=== PATIENT | female | born 1945 | race Hispanic/Latino ===

== ENCOUNTER 2017-12-15 10:40 | Outpatient (CLI) | payer MEDICARE | END 2017-12-15 10:41 | disposition home or self-care (01) | LOC: BICMAMMO 10:40 | PROVIDERS: ATTEND Student in an Organized Health Care Education/Training Program | DX: Z12.31 Encounter for screening mammogram for malignant neoplasm of breast (principal); D12.6 Benign neoplasm of colon, unspecified; M85.80 Other specified disorders of bone density and structure, unspecified site; Z80.3 Family history of malignant neoplasm of breast; Z00.00 Encounter for general adult medical examination without abnormal findings | CPT/HCPCS: 77063; 77067; 77080 ==

== ENCOUNTER 2020-01-14 14:16 | Observation (INO) | payer MEDICARE ==
--- NOTE | 2020-01-14 15:14 | CT ---
CT BRAIN NONCONTRAST: DATE: 01/14/2020 HISTORY: 74-year-old female with approximately one week of dizziness, lightheadedness, headache, and gait inst ability. FINDINGS: There is no evidence of acute intra-axial or extra-axial hemorrhage. There is no midline shift or any other mass effect. There is no extra-axial fluid collection. There is no evidence of obstructive hydrocephalus. Calvarium is intact. There are low attenuation areas in the white matter. These are no nspecific, but in a patient of this age, they are probably chronic ischemic white matter changes due to microvascular atherosclerosis. There is a subtle, tiny moderately hypointense subcentimeter le carmelina at the anterior edge of the right thalamus, close to the genuine and posterior limb of the right internal capsule. IMPRESSION: 1) tiny faint focal hypodensity in the right thalamus anteriorly suggestive of a lacunar infarction, of indeterminate age. 2) no acute intracranial hemorrhage or mass effect. 3) chronic ischemic white matter changes.
[2020-01-14 15:28] LABS: #Eosinphils 0.1 thou/uL (0.0-0.7); #Lymphocytes 2.1 thou/uL (1.20-3.40); #Monocytes 0.7 thou/uL (0.11-0.59); #Neutrophils 2.8 thou/uL (1.40-6.50); %Basophils 0.7 % (0.0-1.0); %Eosinophils 1.1 % (0.0-10.0); %Lymphocytes 36.4 % (21.0-51.0); %Monocytes 12.4 % (0.0-10.0); %Neutrophils 49.5 % (42.0-75.0); Hemoglobin 14.6 g/dL (12.0-16.0); Mean Corpuscular HGB CONC 32.7 g/dL (32.0-36.0); Mean Corpuscular Hemoglobin 28.4 pg (27.0-31.0); Mean Corpuscular Volume 86.7 fL (78.0-98.0); Platelet Count 320 thou/uL (130-400); RBC Distribution Width 12.9 % (11.5-14.5); Red Blood Cell (RBC) Count 5.15 mill/uL (4.20-5.40); White Blood Cell (WBC) Count 5.7 thou/uL (4.8-10.8)
--- NOTE | 2020-01-14 15:28 | RAD ---
PORTABLE CHEST: Date: 01/14/2020 PROVIDED CLINICAL HISTORY: Vision loss, loss of balance. FINDINGS: No comparisons. Evaluation is limited by patient body habitus. The cardiac silhouette appears enlarged, which may be at least partially on the basis of portable barrie hnique. No focal consolidation, pleural fluid, or pneumothorax apparent. IMPRESSION: No definite evidence for an acute cardiopulmonary process. POS: UNIQUE
[2020-01-14 15:52] LABS: ALT (SGPT) 23 U/L (8-55); AST (SGOT) 18 U/L (5-34); Alkaline Phosphatase 105 U/L (40-110); Anion Gap 13 mmol/L (10-20); BUN (Urea Nitrogen) 16 mg/dL (9.8-20.1); Bilirubin, Total 0.7 mg/dL (0.2-1.2); Calc. Creatinine Clearance 0 mL/min (70-130); Calcium 9.6 mg/dL (7.8-10.44); Carbon Dioxide 28 mmol/L (23-31); Chloride 102 mmol/L (98-107); Estimated GFR-MDRD 72; Globulin 3.8 g/dL (2.4-3.5); Glucose 107 mg/dL (83-110); Protein, Total 7.8 g/dL (6.0-8.3); Sodium 140 mmol/L (136-145)
[2020-01-14 15:57] LABS: Potassium 2.9 mmol/L (3.5-5.1)
[2020-01-14] MEDS ORDERED: Potassium Chloride 20 MEQ TAB ONE (16:02)
[2020-01-14 16:34] LABS: Bilirubin Negative (Negative); Blood, Urine Negative (Negative); Clarity Clear (Clear); Glucose, Urine (Dipstick) Normal (Negative); Leukocyte Negative Leu/uL (Negative); Nitrite Negative (Negative); Protein, Urine (Dipstick) Negative (Neg-Trace); Urobilinogen Normal mg/dL (Less than 2)
--- NOTE | 2020-01-14 16:45 | PDOC.FPRHP ---
- History of Present Illness Chief Complaint: dizziness, word-finding difficulty History of Present Illness: 74yo F h/o HTN presents with 1wk sxs of dizziness/lightheadedness, R-sided RANDALL, blurred vision without field deficits, and word-finding difficulty. Sxs have worsened since onset. No LOC. No other focal deficit. Having to use cane to walk due to unsteadiness. No fever/chills, n/v. Diarrhea earlier in the week,, twice per day, since resolved. CP described as substernal burning, worse lying flat, has since resolved. Has history of GERD, has not tried anything at home. Checks BP at home, runs 160s/170s/90s at home. ED Course: Beside eye US WNL per report. CT obtained. - Allergies/Adverse Reactions Allergies Allergy/AdvReac Type Severity Reaction Status Date / Time acetaminophen Allergy Unverified 01/14/20 19:10 aspirin Allergy Verified 01/14/20 17:34 codeine Allergy Verified 01/14/20 19:09 - Home Medications Medication Instructions Recorded Confirmed Type Hydrochlorothiazide 25 mg PO QAM 01/14/20 01/14/20 History - History PMHx: HTN, GERD PSHx: Hyst, Appy, Knee arthroscopy FHx: Brother with TIAs, father with CVA Social: Lives with daughter. No tob, EtOH, or illicits. - Review of Systems General: denies: fever/chills, weight/appetite/sleep changes, fatigue Eyes: reports: vision changes ENT: denies: nasal congestion, rhinorrhea Respiratory: denies: cough, congestion, shortness of breath Cardiovascular: reports: chest pain (per HPI), edema (chronic) Gastrointestinal: reports: diarrhea. denies: nausea, vomiting, abdominal pain Genitourinary: denies: incontinence, dysuria Skin: denies: rashes Neurological: reports: other (per HPI) - Vital signs BP: 188/102 HR: 92 RR: 19 Tmax: 98.2 Pox: 93% on RA Wt: 81kg - Physical Exam Constitutional: NAD, awake, alert and oriented, well developed HEENT: PERRLA, EOMI, grossly normal hearing, MMM, oropharynx clear Neck: supple Heart: RRR, normal S1/S2, other (2/6 XANDER) Lungs: CTAB, no respiratory distress, good air movement, no rales/rhonchi, no wheezing Abdomen: soft, non-tender, bowel sounds present Musculoskeletal: normal structure, normal tone Neurological: no focal deficit, CN II-XII intact, normal sensation, other ( normal sensation, normal swantc-mo-ilgt. normal speech.) Skin: no rash/lesions Psychiatric: normal mood and affect, good judgment and insight, intact recent and remote memory FMR H&P: Results - Labs Result Diagrams: 01/14/20 15:20 01/14/20 15:20 Lab results: WBC 5.7 thou/uL (4.8-10.8) 01/14/20 15:20 Hgb 14.6 g/dL (12.0-16.0) 01/14/20 15:20 Hct 44.6 % (36.0-47.0) 01/14/20 15:20 MCV 86.7 fL (78.0-98.0) 01/14/20 15:20 Plt Count 320 thou/uL (130-400) 01/14/20 15:20 Neutrophils % 49.5 % (42.0-75.0) 01/14/20 15:20 Sodium 140 mmol/L (136-145) 01/14/20 15:20 Potassium 2.9 mmol/L (3.5-5.1) L* 01/14/20 15:20 Chloride 102 mmol/L (98-107) 01/14/20 15:20 Carbon Dioxide 28 mmol/L (23-31) 01/14/20 15:20 BUN 16 mg/dL (9.8-20.1) 01/14/20 15:20 Creatinine 0.78 mg/dL (0.6-1.1) 01/14/20 15:20 Glucose 107 mg/dL (83-110) 01/14/20 15:20 Calcium 9.6 mg/dL (7.8-10.44) 01/14/20 15:20 Total Bilirubin 0.7 mg/dL (0.2-1.2) 01/14/20 15:20 AST 18 U/L (5-34) 01/14/20 15:20 ALT 23 U/L (8-55) 01/14/20 15:20 Alkaline Phosphatase 105 U/L (40-110) 01/14/20 15:20 Serum Total Protein 7.8 g/dL (6.0-8.3) 01/14/20 15:20 Albumin 4.0 g/dL (3.4-4.8) 01/14/20 15:20 Urine Ketones Negative mg/dL (Negative) 01/14/20 16:20 Urine Blood Negative (Negative) 01/14/20 16:20 Urine Nitrite Negative (Negative) 01/14/20 16:20 Ur Leukocyte Esterase Negative Karl/uL (Negative) 01/14/20 16:20 - EKG Interpretation EKG: Normal axis, normal intervals. No ST or T wave changes. Good R wave progression. - Radiology Interpretation CT scan - head Status: report reviewed by me (tiny faint focal R anterior thalamus hypodensity lacunar infarct, chronic ischemic changes.) FMR H&P: A/P - Problem List (1) CVA (cerebral vascular accident) Current Visit: Yes Status: Acute Code(s): I63.9 - CEREBRAL INFARCTION, UNSPECIFIED (2) HTN (hypertension) Current Visit: Yes Status: Chronic Code(s): I10 - ESSENTIAL (PRIMARY) HYPERTENSION (3) Hypokalemia Current Visit: Yes Status: Acute Code(s): E87.6 - HYPOKALEMIA - Plan 74yo F with h/o HTN presents for CVA #R anterior thalamus CVA - sxs of dizziness/lighteadhedness, blurred vision, difficulty with word interpretation x1wk - CT head with faint focal R thalamus anterior hypodensity suggestive of lacunar infarct, age indeterminate - Risk stratify with lipid panel, TSH, A1C - PT/OT - neuro consult, apprec recs - NIH stroke scales - Allergy to ASA - unsure rxn - Plavix and Atorva added - Outside window for permissive HTN and/or tPA as sxs onset approx 1 week ago #GERD - CP described as burning epigastric worse with lying down and at night - h/o of GERD - EKG WNL and trop negative - Will add pepcid #Hypokalemia - K 2.9 - Will check Mg and phos - replace and monitor #HTN - Cont home HCTZ - BP 188/102 at presentation - home logs 160s/90s - will titrate meds appropriately Code: DNR PCP: [facility] - [place] Diet: IVF: SL VTE: Lovenox Disposition/LOS: Admit to stroke for new CVA. Neuro consulted. Risk stratify. Anticipate LOS > 48hrs. FMR H&P: Upper Level - Plan Date/Time: 01/14/20 1644 74 yo F with PMH HTN presents for lightheadedness, weakness, vision changes and is admitted for stroke rule out. She reports 1 week history of symptoms that have gradually been worsening. Endorses lightheadedness without syncope, mild R sided headache, difficulty with speech. Reports mild chest pain that has not worsened and some blurry vision. Denies SOB, difficulty breathing, fever. Notes allergy to ASA and was not given in ED. Says she took ASA years ago, tried it several times. She cant remember exact reaction but thinks it could have been hives. She has not taken since. PMH: HTN SxH: hysterectomy, appy, knee arthroscopy FH: HTN, depression-mother, mini-strokes in brother and father SocH: No tobacco, alcohol, drug use. Lives with daughter All: ASA-hives?, codeine, PCN, Tylenol-hives VS: 186/104, 169/87, 92, 20, 98.0, 96% on RA, 81 kg Gen: NAD, alert Heart: RRR, no murmur Lungs: CTAB, normal effort Ext: no edema Neuro: CN2-12 intact, BUE and BLE strength 5/5, sensory intact, finger to nose normal, normal speech and affect CT brain: tiny jelena focal hypodensity in R thalamus anteriorly suggestive of lacunar infarction of indeterminate age, no acute intracranial hemorrhage, chronic ischemic white matter changes CVA, lacunar - MRI ordered - Consult neurology - Lipids, A1c, TSH ordered for risk stratification. - Trop negative. EKG NSR, no NS changes - Start high intensity statin. - Patient reports aspirin allergy. Start Plavix for secondary prevention. - PT/OT consulted - Monitor NIH on stroke HTN - Initial BP in ED 188/102, now 160s systolic - Home BP log reviewed with daily readings BP average 160-170s/80-90s. Taking HCTZ daily. Took today. - Out of range for permissive HTN - Continue home HCTZ, will need titration for better BP control. Hypokalemia - Replaced in ED with 40 meq, recheck in am Diet: HH PPx: Lovenox PCP: Elisabeth Dispo: admit to stroke unit inpatient, expected stay <48hrs Patient seen and examined by Dr. Dumont. I, Willa Barragan DO, have evaluated this patient and agree with findings/plan as outlined by undergraduate internship resident. Pertinent changes/additions are listed here. Addendum - Attending - Attending Attestation Date/Time: 01/14/202054 I personally evaluated the patient and discussed the management with the team. I agree with the History, Examination, Assessment and Plan documented above with any addition or exceptions noted below. 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 Gets hives with nsaids, she says. Begin plavix, complete neuroimaging.
[2020-01-14] MEDS ORDERED: hydrALAZINE 20 MG/ML VIAL SLOW IVP PRN (17:09)
[2020-01-14] MEDS ORDERED: Calcium Carbonate 500 MG ChewTAB PO PRN (17:09)
[2020-01-14] MEDS ORDERED: hydrALAZINE 20 MG/ML VIAL ONE (17:32)
[2020-01-14 17:35] LABS: Magnesium 2.1 mg/dL (1.6-2.6); Phosphorus 2.5 mg/dL (2.3-4.7)
[2020-01-14 17:59] LABS: Hemoglobin A1c 6.2 % (4.0-6.0)
[2020-01-14 18:25] LABS: Troponin I Less than 0.010 ng/mL (< 0.028)
[2020-01-14] MEDS ORDERED: Atorvastatin Calcium 40 MG TAB PO SCH (21:00)
[2020-01-14 21:55] LABS: Troponin I 0.018 ng/mL (< 0.028)
--- NOTE | 2020-01-14 22:11 | ULT ---
Carotid duplex sonogram HISTORY: Vascular disease. TIA. FINDINGS: Right: Color and spectral Doppler evaluation, peak systolic velocity of 50 cm/s, and IC to CC ratio 0 .7 suggest no hemodynamically significant stenosis within the extracranial right ICA. Antegrade flow within the vertebral artery. Left: Color and spectral Doppler evaluation, peak systolic velocity of 45 cm/s, and IC to CC ratio of 0.5 suggest no hemodynamically significant stenosis within the extracranial left ICA. Antegrade flow within the vertebral artery. IMPRESSION : No significant plaque evident. No sonographic evidence of significant extracranial ICA stenosis.
[2020-01-14] MEDS: Famotidine 20 MG TAB PO SCH (22:52)
[2020-01-14 22:56] VITALS: BMI 37.3
--- NOTE | 2020-01-15 06:53 | PDOC.FM ---
- Subjective Subjective: Mrs. Funk reports feeling well. No change in symptoms. Reports difficulty with word finding though she does speak fluently. Reports continued unsteady gait but able to ambulate with cane. - Objective Vital Signs & Weight: Vital Signs (12 hours) Temp Pulse Resp BP Pulse Ox 01/15/20 04:19 98.3 F 76 16 95 01/15/20 00:00 98.2 F 77 16 177/85 H 97 Weight Weight 86.727 kg Result Diagrams: 01/14/20 15:20 01/15/20 07:08 Phys Exam - Physical Examination Constitutional: NAD Respiratory: clear to auscultation bilateral Cardiovascular: RRR (2/6 systolic ERIK border murmur) Gastrointestinal: soft, non-tender Musculoskeletal: no edema Psychiatric: normal affect Skin: normal turgor Dx/Plan - Plan Plan: 74 yo F with PMH HTN admitted for CVA. CVA, lacunar R anterior thalamus - MRI pending - Consult neurology - Continue statin - Patient reports aspirin allergy. Plavix started. - Carotid dopplar negative. - PT/OT consulted - Monitor NIH on stroke HTN - Home BP log reviewed with daily readings BP average 160-170s/80-90s. Taking HCTZ 25 daily. - Out of range for permissive HTN - Continue home HCTZ, will start lisinopril 5mg daily. Prediabetes - discussed with patient, outpatient follow up for lifestyle changes Hypokalemia, improved - Replaced in ED with 40 meq Diet: HH PPx: Lovenox PCP: Elisabeth Dispo: Pending workup Addendum - Attending - Attending Attestation Date/Time: 01/15/20 1120 I personally evaluated the patient and discussed the management with Dr. Barragan. I agree with the History, Examination, Assessment and Plan documented above with any addition or exceptions noted below. Patient here for CVA r/o. Has old lacunar infarct. Needs BP and cholesterol control. Should be stable for dc later today after neurology eval.
[2020-01-15 07:46] LABS: Anion Gap 13 mmol/L (10-20); BUN (Urea Nitrogen) 19 mg/dL (9.8-20.1); Calc. Creatinine Clearance 88 mL/min (70-130); Calcium 9.3 mg/dL (7.8-10.44); Carbon Dioxide 25 mmol/L (23-31); Cardiac Risk 3.7 (Less than 4.5); Chloride 104 mmol/L (98-107); Cholesterol 174 mg/dl (< 200 Desired); Estimated GFR-MDRD 74; Glucose 121 mg/dL (83-110); HDL Cholesterol 47 mg/dL (>60 Neg Risk); LDL Cholesterol, Calculated 109 mg/dL; Potassium 3.8 mmol/L (3.5-5.1); Sodium 138 mmol/L (136-145); Triglycerides 92 mg/dL (Less than 150)
[2020-01-15] MEDS ORDERED: Lorazepam 0.5 MG TAB PO SCH (08:00)
[2020-01-15] MEDS ORDERED: Lorazepam 2 MG/ML VIAL SLOW IVP SCH (08:00)
[2020-01-15] MEDS: Famotidine 20 MG TAB PO SCH (08:18)
[2020-01-15] MEDS ORDERED: Enoxaparin Sodium 40 MG/0.4 ML SYRINGE SC SCH (09:00)
[2020-01-15] MEDS ORDERED: Lisinopril 5 MG TAB PO SCH (09:00)
[2020-01-15] MEDS ORDERED: Hydrochlorothiazide 25 MG TAB PO SCH (09:00)
[2020-01-15] MEDS ORDERED: Clopidogrel Bisulfate 75 MG TAB PO SCH (09:00)
--- NOTE | 2020-01-15 10:38 | MRI ---
MRI BRAIN WITHOUT CONTRAST: Date: 01/15/2020 HISTORY: Dizziness. Unstable gait. Headache. FINDINGS: Correlation is made with the previous day's CT scan. No restricted diffusion is seen. There are foci of T2 prolongation in the periventricular white matte r consistent with chronic small vessel ischemic disease. Old lacunar infarction is seen in the right thalamus. No acute infarct, hemorrhage, midline shift, or abnormal extra-axial fluid collection is se en. The ventricular size is appropriate and the basilar cisterns are patent. IMPRESSION: No evidence of acute intracranial process. POS: MARKO
[2020-01-15] MEDS ORDERED: predniSONE 20 MG TAB PO SCH (15:00)
[2020-01-15 15:26] VITALS: TEMP 98.1
[2020-01-15 18:08] VITALS: BP 145/78
--- NOTE | 2020-01-15 20:25 | CON ---
DATE OF CONSULTATION: 01/15/2020 CONSULTING PHYSICIAN: Hospitalist Service. IMPRESSION: Peripheral vertigo. PLAN: 1. Prednisone 20 mg per day for 3 days. 2. Follow up with dizzy balance clinic if her symptoms persist. HISTORY OF PRESENT ILLNESS: Ms. Funk is a 74-year-old woman with a past history of hypertension. She comes in with complaints of intermittent dizziness that has been going on for the last few days. It is associated with a feeling of movement and slight degree of nausea. She has had some upper respiratory symptoms recently, which she attributed to allergy. She has not had any slurred speech or focal neurologic deficits. Otherwise, she reports that the dizziness event usually lasts several minutes at a time. They seemingly are provoked by movement. She had an MRI of the brain done, which showed an old lacunar infarction, but nothing acute. Carotid ultrasound was clear. Echocardiogram is pending. Her EKG shows sinus rhythm. Her lab work was all in normal range. She has been started on Plavix and Lipitor. PAST MEDICAL HISTORY: Hypertension. ALLERGIES: TYLENOL, ASPIRIN, CODEINE, AND SHELLFISH. MEDICATION: List reviewed. SOCIAL HISTORY: No tobacco or alcohol use. FAMILY HISTORY: Noncontributory. REVIEW OF SYSTEMS: Ten-system review of systems is otherwise negative. PHYSICAL EXAMINATION: VITAL SIGNS: Blood pressure of 133/82, pulse 72, respirations 20, and temperature 97.8. HEENT: Pupils are equal and reactive. Conjunctivae are clear. No nystagmus is present. Hearing is intact. Oropharynx clear. NECK: Supple. EXTREMITIES: No cyanosis or edema. NEUROLOGIC: She is alert and appropriate. Her speech is fluent and clear. Cranial nerves 2 through 12 are intact. She had good pattern stamper strength bilaterally. She has equal sensation. She has no abnormal movements seen. DIAGNOSTIC STUDIES: Laboratory studies and imaging were reviewed. SUMMARY: A 74-year-old woman with complaints of intermittent dizziness, slight nausea that seemingly are provoked by movement and not associated with any focal neurologic symptoms. Her MRI is negative, therefore, this would appear to be peripheral vertigo, it is possible it could be related to her allergies versus benign positional vertigo. I will follow up with her as an outpatient. I would discontinue the Lipitor and Plavix. Job ID: [id number] [facility]
[2020-01-16] MEDS ORDERED: predniSONE 20 MG TAB PO SCH (08:00)
--- NOTE | 2020-01-16 13:44 | DIS ---
DATE OF ADMISSION: 01/14/2020 DATE OF DISCHARGE: 01/15/2020 RESIDENT: Willa Barragan DO ADMITTING ATTENDING: Bernardo Dumont MD DISCHARGE ATTENDING: Dick Garcia MD CONSULT: Neurology, Dr. Person. PROCEDURES PERFORMED: 1. 01/14/[address] showed tiny faint focal hypodensity in the right thalamus anteriorly suggestive of a lacunar infarction of indeterminate age. Chronic ischemic white matter changes. No acute intracranial hemorrhage or mass effect. 2. 01/15/2020 brain MRI showed old lacunar infarction in the right thalamus. No evidence of acute intracranial process. 3. 01/15/2020 echocardiogram showed ejection fraction at 60% to 65%, E-A flow reversal noted suggestive of diastolic dysfunction, aortic leaflets are somewhat thickened. Mild tricuspid regurgitation. Trace mitral regurgitation, normal left and right atrium. No evidence of ASD or PFO. PRIMARY DIAGNOSES: 1. Peripheral vertigo. 2. Old lacunar infarct. 3. Hypokalemia. SECONDARY DIAGNOSES: 1. Hypertension. 2. Prediabetes. HISTORY OF PRESENT ILLNESS: A 74-year-old female with history of hypertension, presented with 1-week history of lightheadedness, blurred vision without field deficits, mild headache and word-finding difficulty. A lesion was found on CT and patient was admitted for further stroke workup for symptoms. Radiology findings as noted above. Neurology was consulted and believed the patient's symptoms to be more attributable to peripheral vertigo, and patient was started on a short prednisone course with planned followup with Dr. Person in the outpatient setting. The patient does have a history of hypertension and her home log review in addition to readings inpatient showed blood pressure in the 160s to 170s systolic. Home hydrochlorothiazide was continued and the patient was started on lisinopril as well. The patient was noted to be prediabetic with A1c showed of 6.2. Other labs to note include total cholesterol 124, LDL 109, HDL 47, TSH 1.4. Her potassium was initially 2.9 and this was replaced and corrected at discharge. In addition, she had a normal white blood cell count of 5.7 with 12.4% monocytes. Her troponins were trended and negative. DISCHARGE MEDICATIONS: 1. Hydrochlorothiazide 25 mg p.o. q.a.m. 2. Atorvastatin 80 mg p.o. at bedtime. 3. Plavix 75 mg p.o. daily. 4. Lisinopril 5 mg p.o. daily. 5. Prednisone 20 mg p.o. daily #3. DISCHARGE INSTRUCTIONS: 1. Location: Home. 2. Diet: Heart healthy. 3. Activity: As tolerated. 4. Followup: Followup with primary care physician at [email or web address]] in [address] up with [address]. Person, Neurology. The patient has home health with guardian set up for physical therapy. Job ID: [id number]
--- NOTE | 2020-01-18 09:49 | EKG ---
Test Reason : Blood Pressure : / mmHG Vent. Rate : 091 BPM Atrial Rate : 091 BPM P-R Int : 140 ms QRS Dur : 074 ms QT Int : 338 ms P-R-T Axes : 001 014 013 degrees QTc Int : 415 ms Normal sinus rhythm Cannot rule out Inferior infarct , age undetermined Abnormal ECG Confirmed by KASHIF ESPINOZA DO ([id number]), video effects editor ROSITA QURESHI ([id number]) on 01/18/2020 9:49:18 AM Referred By: Confirmed By:KASHIF ESPINOZA DO
== END 2020-01-15 17:29 | disposition home health service (06) ==
LOC: ERS 14:16 → INTOOBSV 17:11 → 2SE 17:11
PROVIDERS: ADMIT Student in an Organized Health Care Education/Training Program; ATTEND Student in an Organized Health Care Education/Training Program
DX: I63.9 Cerebral infarction, unspecified (principal); H81.399 Other peripheral vertigo, unspecified ear; E87.6 Hypokalemia; I10 Essential (primary) hypertension; R73.03 Prediabetes; Z79.899 Other long term (current) drug therapy; Z86.73 Personal history of transient ischemic attack (TIA), and cerebral infarction without residual deficits; Z88.5 Allergy status to narcotic agent; Z88.6 Allergy status to analgesic agent; Z91.013 Allergy to seafood; Z66 Do not resuscitate
CPT/HCPCS: 70450; 70551; 71045; 80048; 80061; 81003; 83036; 83735; 84100; 84484 ×2; 93005; 93306; 93880; 96372; 96374; 97116; 97139 ×5; 97535; 99285; G0378 ×3; J1650; J2060; J7512; 36415; 80053; 84443; 85025; J0360

== ENCOUNTER 2021-02-23 13:25 | Outpatient (CLI) | payer MEDICARE | END 2021-02-23 13:26 | disposition home or self-care (01) | LOC: BICRAD 13:25 | PROVIDERS: ATTEND Student in an Organized Health Care Education/Training Program | DX: M25.561 Pain in right knee (principal); M17.11 Unilateral primary osteoarthritis, right knee ==

== ENCOUNTER 2021-06-14 12:28 | Outpatient (CLI) | payer MEDICARE | END 2021-06-14 12:29 | disposition home or self-care (01) | LOC: BICMRI 12:28 | PROVIDERS: ATTEND Student in an Organized Health Care Education/Training Program | DX: M25.561 Pain in right knee (principal); M25.461 Effusion, right knee; M23.203 Derangement of unspecified medial meniscus due to old tear or injury, right knee; M23.91 Unspecified internal derangement of right knee ==

== ENCOUNTER 2022-04-01 12:40 | Outpatient (CLI) | payer MEDICARE | END 2022-04-01 12:41 | disposition home or self-care (01) | LOC: BICMAMMO 12:40 | PROVIDERS: ATTEND Student in an Organized Health Care Education/Training Program | DX: Z12.31 Encounter for screening mammogram for malignant neoplasm of breast (principal); Z80.3 Family history of malignant neoplasm of breast | CPT/HCPCS: 77063; 77067 ==